=== PATIENT | female | born 1955 | race Caucasian/White ===

== ENCOUNTER 2018-08-25 21:46 | Inpatient (IN) | payer MEDICAID ==
[~2018-08-25] VITALS: Ht 162.6 cm; Wt 68.5 kg
[2018-08-25 23:29] LABS: PLATELET COUNT 223 x10^3mcL (130-400)
[2018-08-25 23:30] LABS: CARBON DIOXIDE 23.4 mmol/L (21-32); CHLORIDE SERUM 103 mmol/L (98-107); GFR1 27 mL/min; GLUCOSE SERUM 210 mg/dL (74-106); SODIUM SERUM 138 mmol/L (136-145)
[2018-08-25 23:35] LABS: ALKALINE PHOSPHATASE 94 U/L (46-116); ALT/SGPT 23 U/L (14-59); AST/SGOT 22 U/L (15-37); BILIRUBIN TOTAL 0.7 mg/dL (0.20-1.00)
[2018-08-25 23:36] LABS: ALBUMIN 2.7 g/dL (3.4-5.0); TOTAL PROTEIN, SERUM 5.9 g/dL (6.4-8.2)
[2018-08-26] VITALS (15 sets, daily range): BP systolic 56–175; BP diastolic 32–80
[2018-08-26 00:53] LABS: BAND NEUTROPHIL 14 % (0-10); METAMYELOCTE 5 % (0-2); MONOCYTE 3 % (0-7); MYELOCYTE 1 % (0-2); PLATELET MORPHOLOGY PLATELETS NORMAL; SEGMENTED NEUTROPHILS 73 % (37-75); rbc morphology (normal/abnorm) NORMAL (NORMAL)
[2018-08-26 01:42] LABS: MAGNESIUM 1.1 mg/dL (1.8-2.4); PHOSPHOROUS 3.8 mg/dL (2.5-4.9)
[2018-08-26 01:43] LABS: CHOLESTEROL/HDL RATIO 1.9
[2018-08-26 02:08] LABS: UA SPECIFIC GRAVITY >=1.030 (1.005-1.035); microscopic required? YES; urine erythrocyte 1+ (NEGATIVE)
[2018-08-26 06:29] LABS: CALCIUM 8.1 mg/dL (8.5-10.1); CARBON DIOXIDE 22.3 mmol/L (21-32); CREATININE SERUM 1.8 mg/dL (0.6-1.0); POTASSIUM SERUM 3.8 mmol/L (3.5-5.1)
[2018-08-26 06:50] LABS: PLATELET COUNT 172 x10^3mcL (130-400); RED CELL DISTRIBUTION WIDTH 14.1 % (11.5-14.5)
[2018-08-26 14:45] LABS: ATYPICAL LYMPH 1 %; BAND NEUTROPHIL 11 % (0-10); BASOPHIL 0 % (0-2); MONOCYTE 10 % (0-7); SEGMENTED NEUTROPHILS 72 % (37-75)
[2018-08-26 14:46] LABS: PLATELET MORPHOLOGY PLATELETS DECREASED; rbc morphology (normal/abnorm) ABNORMAL (NORMAL)
[2018-08-27] VITALS (19 sets, daily range): BP systolic 87–125; BP diastolic 52–94
[2018-08-27 05:30] LABS: PLATELET COUNT 122 x10^3mcL (130-400); RED CELL DISTRIBUTION WIDTH 14.9 % (11.5-14.5)
[2018-08-27 05:31] LABS: BAND NEUTROPHIL 15 % (0-10); SEGMENTED NEUTROPHILS 80 % (37-75)
[2018-08-27 05:32] LABS: PLATELET MORPHOLOGY PLATELETS DECREASED; rbc morphology (normal/abnorm) ABNORMAL (NORMAL)
[2018-08-27 05:40] LABS: CARBON DIOXIDE 18.3 mmol/L (21-32); MAGNESIUM 1.9 mg/dL (1.8-2.4); PHOSPHOROUS 5.1 mg/dL (2.5-4.9); POTASSIUM SERUM 4.9 mmol/L (3.5-5.1)
[2018-08-28] VITALS (17 sets, daily range): BP systolic 77–134; BP diastolic 47–74
[2018-08-28 05:03] LABS: CALCIUM 6.7 mg/dL (8.5-10.1); CARBON DIOXIDE 15.7 mmol/L (21-32); CREATININE SERUM 3.9 mg/dL (0.6-1.0); MAGNESIUM 1.8 mg/dL (1.8-2.4); PHOSPHOROUS 5.8 mg/dL (2.5-4.9); POTASSIUM SERUM 4.1 mmol/L (3.5-5.1)
[2018-08-28 05:07] LABS: BASOPHIL % 0.3 % (0-2); PLATELET COUNT 76 x10^3mcL (130-400); RED CELL DISTRIBUTION WIDTH 15.4 % (11.5-14.5)
[2018-08-28 20:17] LABS: CALCIUM 8.3 mg/dL (8.5-10.1); CREATININE SERUM 2.3 mg/dL (0.6-1.0)
[2018-08-28 20:24] LABS: POTASSIUM SERUM 2.6 mmol/L (3.5-5.1)
[2018-08-29] VITALS (18 sets, daily range): BP systolic 96–160; BP diastolic 51–83
[2018-08-29 04:56] LABS: BASOPHIL % 0.1 % (0-2); PLATELET COUNT 59 x10^3mcL (130-400); RED CELL DISTRIBUTION WIDTH 14.9 % (11.5-14.5)
[2018-08-29 05:00] LABS: CALCIUM 7.9 mg/dL (8.5-10.1); CARBON DIOXIDE 21.8 mmol/L (21-32); CREATININE SERUM 3.4 mg/dL (0.6-1.0); MAGNESIUM 1.6 mg/dL (1.8-2.4); PHOSPHOROUS 2.7 mg/dL (2.5-4.9); POTASSIUM SERUM 3.7 mmol/L (3.5-5.1)
[2018-08-30] VITALS (18 sets, daily range): BP systolic 107–166; BP diastolic 56–119
[2018-08-30 05:42] LABS: PLATELET COUNT 52 x10^3mcL (130-400); RED CELL DISTRIBUTION WIDTH 15.1 % (11.5-14.5)
[2018-08-30 05:49] LABS: BAND NEUTROPHIL 1 % (0-10); MONOCYTE 5 % (0-7); MYELOCYTE 1 % (0-2); SEGMENTED NEUTROPHILS 81 % (37-75)
[2018-08-30 05:50] LABS: rbc morphology (normal/abnorm) ABNORMAL (NORMAL)
[2018-08-30 05:51] LABS: PLATELET MORPHOLOGY PLATELETS DECREASED
[2018-08-30 05:52] LABS: BILIRUBIN TOTAL 2.62 mg/dL (0.20-1.00); CALCIUM 7.7 mg/dL (8.5-10.1); CARBON DIOXIDE 25.8 mmol/L (21-32); CREATININE SERUM 3.2 mg/dL (0.6-1.0); MAGNESIUM 2.3 mg/dL (1.8-2.4); PHOSPHOROUS 2.8 mg/dL (2.5-4.9); POTASSIUM SERUM 3.4 mmol/L (3.5-5.1)
[2018-08-30 05:53] LABS: ALBUMIN 1.5 g/dL (3.4-5.0); TOTAL PROTEIN, SERUM 5.3 g/dL (6.4-8.2)
[2018-08-31] VITALS (18 sets, daily range): BP systolic 112–149; BP diastolic 51–78
[2018-08-31 04:50] LABS: CALCIUM 7.5 mg/dL (8.5-10.1); CARBON DIOXIDE 26.2 mmol/L (21-32); POTASSIUM SERUM 3.9 mmol/L (3.5-5.1)
[2018-08-31 05:00] LABS: CREATININE SERUM 4.5 mg/dL (0.6-1.0)
[2018-08-31 05:04] LABS: PLATELET COUNT 61 x10^3mcL (130-400); RED CELL DISTRIBUTION WIDTH 15.6 % (11.5-14.5)
[2018-08-31 05:21] LABS: BILIRUBIN TOTAL 1.8 mg/dL (0.20-1.00); CALCIUM 7.8 mg/dL (8.5-10.1); CARBON DIOXIDE 26.3 mmol/L (21-32); MAGNESIUM 2.4 mg/dL (1.8-2.4); PHOSPHOROUS 2.6 mg/dL (2.5-4.9); POTASSIUM SERUM 3.9 mmol/L (3.5-5.1)
[2018-08-31 05:30] LABS: BAND NEUTROPHIL 1 % (0-10); MONOCYTE 5 % (0-7); MYELOCYTE 1 % (0-2); SEGMENTED NEUTROPHILS 81 % (37-75); rbc morphology (normal/abnorm) ABNORMAL (NORMAL)
[2018-08-31 05:31] LABS: PLATELET MORPHOLOGY PLATELETS DECREASED
[2018-08-31 05:36] LABS: ALBUMIN 1.5 g/dL (3.4-5.0); TOTAL PROTEIN, SERUM 5.5 g/dL (6.4-8.2)
[2018-08-31 05:37] LABS: CREATININE SERUM 4.5 mg/dL (0.6-1.0)
[2018-09-01] VITALS (21 sets, daily range): BP systolic 116–182; BP diastolic 54–91
[2018-09-01 05:21] LABS: BASOPHIL % 0.3 % (0-2)
[2018-09-01 05:22] LABS: PLATELET COUNT 75 x10^3mcL (130-400); RED CELL DISTRIBUTION WIDTH 15.7 % (11.5-14.5)
[2018-09-01 05:41] LABS: CALCIUM 7.7 mg/dL (8.5-10.1); CARBON DIOXIDE 30.7 mmol/L (21-32); CREATININE SERUM 3.9 mg/dL (0.6-1.0); MAGNESIUM 1.9 mg/dL (1.8-2.4); PHOSPHOROUS 2.4 mg/dL (2.5-4.9); POTASSIUM SERUM 3.4 mmol/L (3.5-5.1)
[2018-09-02] VITALS (16 sets, daily range): BP systolic 128–162; BP diastolic 56–102
[2018-09-02 05:19] LABS: PLATELET COUNT 97 x10^3mcL (130-400); RED CELL DISTRIBUTION WIDTH 15.4 % (11.5-14.5)
[2018-09-02 05:25] LABS: BAND NEUTROPHIL 3 % (0-10); MONOCYTE 6 % (0-7); SEGMENTED NEUTROPHILS 83 % (37-75)
[2018-09-02 05:29] LABS: PLATELET MORPHOLOGY PLATELETS DECREASED; rbc morphology (normal/abnorm) ABNORMAL (NORMAL)
[2018-09-02 05:49] LABS: CALCIUM 7.7 mg/dL (8.5-10.1); CARBON DIOXIDE 28.3 mmol/L (21-32); PHOSPHOROUS 5.3 mg/dL (2.5-4.9)
[2018-09-03] VITALS (18 sets, daily range): BP systolic 82–157; BP diastolic 29–69
[2018-09-03 05:28] LABS: BASOPHIL % 0.3 % (0-2)
[2018-09-03 05:32] LABS: CALCIUM 7.9 mg/dL (8.5-10.1); CARBON DIOXIDE 31.6 mmol/L (21-32); POTASSIUM SERUM 3.7 mmol/L (3.5-5.1)
[2018-09-03 05:33] LABS: ALBUMIN 1.6 g/dL (3.4-5.0); TOTAL PROTEIN, SERUM 6.1 g/dL (6.4-8.2)
[2018-09-03 05:34] LABS: CREATININE SERUM 5.6 mg/dL (0.6-1.0)
[2018-09-03 05:42] LABS: PLATELET COUNT 127 x10^3mcL (130-400); RED CELL DISTRIBUTION WIDTH 14.7 % (11.5-14.5)
[2018-09-04] VITALS (18 sets, daily range): BP systolic 91–135; BP diastolic 53–74
[2018-09-04 04:54] LABS: BASOPHIL % 0.2 % (0-2); PLATELET COUNT 165 x10^3mcL (130-400)
[2018-09-04 05:05] LABS: CALCIUM 8.4 mg/dL (8.5-10.1); CARBON DIOXIDE 34.2 mmol/L (21-32); CREATININE SERUM 3.8 mg/dL (0.6-1.0); MAGNESIUM 1.8 mg/dL (1.8-2.4); PHOSPHOROUS 3.6 mg/dL (2.5-4.9); POTASSIUM SERUM 3.4 mmol/L (3.5-5.1)
[2018-09-05] VITALS (18 sets, daily range): BP systolic 84–112; BP diastolic 44–69
[2018-09-05 04:47] LABS: BASOPHIL % 0.4 % (0-2); PLATELET COUNT 224 x10^3mcL (130-400)
[2018-09-05 04:54] LABS: CALCIUM 8.7 mg/dL (8.5-10.1); CARBON DIOXIDE 31.7 mmol/L (21-32); PHOSPHOROUS 4.9 mg/dL (2.5-4.9); POTASSIUM SERUM 3.6 mmol/L (3.5-5.1)
[2018-09-05 04:56] LABS: CREATININE SERUM 4.3 mg/dL (0.6-1.0)
[2018-09-05 05:03] LABS: RED CELL DISTRIBUTION WIDTH 15.7 % (11.5-14.5)
[2018-09-06] VITALS (17 sets, daily range): BP systolic 86–153; BP diastolic 49–66
[2018-09-06 05:03] LABS: BASOPHIL % 0.4 % (0-2); PLATELET COUNT 276 x10^3mcL (130-400)
[2018-09-06 05:05] LABS: RED CELL DISTRIBUTION WIDTH 15.5 % (11.5-14.5)
[2018-09-06 05:17] LABS: CALCIUM 8.3 mg/dL (8.5-10.1); CARBON DIOXIDE 32.1 mmol/L (21-32); CREATININE SERUM 3.4 mg/dL (0.6-1.0); MAGNESIUM 1.7 mg/dL (1.8-2.4); PHOSPHOROUS 4.2 mg/dL (2.5-4.9); POTASSIUM SERUM 3.3 mmol/L (3.5-5.1)
[2018-09-07] VITALS (15 sets, daily range): BP systolic 106–157; BP diastolic 42–111
[2018-09-07 04:36] LABS: BASOPHIL % 0.4 % (0-2); PLATELET COUNT 324 x10^3mcL (130-400); RED CELL DISTRIBUTION WIDTH 15.5 % (11.5-14.5)
[2018-09-07 05:23] LABS: CARBON DIOXIDE 29.2 mmol/L (21-32); MAGNESIUM 2.3 mg/dL (1.8-2.4); PHOSPHOROUS 2.9 mg/dL (2.5-4.9); POTASSIUM SERUM 4.1 mmol/L (3.5-5.1)
[2018-09-08] VITALS (16 sets, daily range): BP systolic 115–163; BP diastolic 47–99
[2018-09-08 04:35] LABS: BASOPHIL % 0.1 % (0-2); PLATELET COUNT 417 x10^3mcL (130-400); RED CELL DISTRIBUTION WIDTH 14.9 % (11.5-14.5)
[2018-09-08 04:52] LABS: CALCIUM 9.1 mg/dL (8.5-10.1); CARBON DIOXIDE 29.6 mmol/L (21-32); CREATININE SERUM 3.5 mg/dL (0.6-1.0); MAGNESIUM 2.3 mg/dL (1.8-2.4); PHOSPHOROUS 4.6 mg/dL (2.5-4.9); POTASSIUM SERUM 4.7 mmol/L (3.5-5.1)
[2018-09-09] VITALS (18 sets, daily range): BP systolic 94–1431; BP diastolic 40–70
[2018-09-09 05:25] LABS: CALCIUM 9.7 mg/dL (8.5-10.1); CARBON DIOXIDE 33.7 mmol/L (21-32); CREATININE SERUM 3.5 mg/dL (0.6-1.0); PHOSPHOROUS 4.4 mg/dL (2.5-4.9); POTASSIUM SERUM 4.6 mmol/L (3.5-5.1)
[2018-09-09 11:52] LABS: PLATELET COUNT 470 x10^3mcL (130-400); RED CELL DISTRIBUTION WIDTH 15.5 % (11.5-14.5)
[2018-09-09 12:39] LABS: ATYPICAL LYMPH 0 %; BAND NEUTROPHIL 0 % (0-10); SEGMENTED NEUTROPHILS 78 % (37-75)
[2018-09-09 12:40] LABS: MONOCYTE 3 % (0-7); PLATELET MORPHOLOGY PLATELETS INCREASED; rbc morphology (normal/abnorm) ABNORMAL (NORMAL)
[2018-09-10] VITALS (18 sets, daily range): BP systolic 94–151; BP diastolic 50–75
[2018-09-10 05:21] LABS: BASOPHIL % 0.6 % (0-2)
[2018-09-10 05:33] LABS: CALCIUM 9.3 mg/dL (8.5-10.1); CARBON DIOXIDE 33.1 mmol/L (21-32); CREATININE SERUM 3.3 mg/dL (0.6-1.0); POTASSIUM SERUM 4.3 mmol/L (3.5-5.1)
[2018-09-10 05:34] LABS: PLATELET COUNT 479 x10^3mcL (130-400)
[2018-09-11] VITALS (15 sets, daily range): BP systolic 120–141; BP diastolic 59–69
[2018-09-11 04:56] LABS: BASOPHIL % 0.4 % (0-2)
[2018-09-11 05:03] LABS: RED CELL DISTRIBUTION WIDTH 15.3 % (11.5-14.5)
[2018-09-11 05:04] LABS: PLATELET COUNT 506 x10^3mcL (130-400)
[2018-09-11 05:15] LABS: CALCIUM 8.7 mg/dL (8.5-10.1); CARBON DIOXIDE 29.7 mmol/L (21-32); CREATININE SERUM 3.2 mg/dL (0.6-1.0); POTASSIUM SERUM 3.4 mmol/L (3.5-5.1)
[2018-09-12] VITALS (17 sets, daily range): BP systolic 110–157; BP diastolic 44–87
[2018-09-12 04:38] LABS: BASOPHIL % 0.3 % (0-2); PLATELET COUNT 357 x10^3mcL (130-400)
[2018-09-12 04:44] LABS: CALCIUM 8.5 mg/dL (8.5-10.1); CARBON DIOXIDE 26.9 mmol/L (21-32); CREATININE SERUM 1.9 mg/dL (0.6-1.0); MAGNESIUM 1.6 mg/dL (1.8-2.4); PHOSPHOROUS 3.7 mg/dL (2.5-4.9); POTASSIUM SERUM 3.6 mmol/L (3.5-5.1)
[2018-09-13] VITALS (13 sets, daily range): BP systolic 116–161; BP diastolic 61–77
[2018-09-13 05:29] LABS: BASOPHIL % 0.2 % (0-2); CALCIUM 9.9 mg/dL (8.5-10.1); CARBON DIOXIDE 28.3 mmol/L (21-32); CREATININE SERUM 2.2 mg/dL (0.6-1.0); MAGNESIUM 1.9 mg/dL (1.8-2.4); PHOSPHOROUS 3.1 mg/dL (2.5-4.9); PLATELET COUNT 433 x10^3mcL (130-400); POTASSIUM SERUM 3.8 mmol/L (3.5-5.1); RED CELL DISTRIBUTION WIDTH 15.7 % (11.5-14.5)
[2018-09-14 03:31] VITALS: BP 117/58
[2018-09-14 05:02] LABS: BASOPHIL % 0.4 % (0-2)
[2018-09-14 05:23] LABS: CALCIUM 10.3 mg/dL (8.5-10.1); CARBON DIOXIDE 29.9 mmol/L (21-32); CREATININE SERUM 2.4 mg/dL (0.6-1.0); MAGNESIUM 2.2 mg/dL (1.8-2.4); PHOSPHOROUS 4.8 mg/dL (2.5-4.9); POTASSIUM SERUM 4.5 mmol/L (3.5-5.1)
[2018-09-14 07:30] VITALS: BP 122/65
[2018-09-14 07:42] VITALS: Ht 162.6 cm; Wt 68.5 kg
[2018-09-14 08:28] LABS: PLATELET COUNT 441 x10^3mcL (130-400); RED CELL DISTRIBUTION WIDTH 15.2 % (11.5-14.5)
[2018-09-14 16:59] VITALS: BP 140/58
[2018-09-14 20:55] VITALS: BP 130/57
[2018-09-15 05:08] VITALS: BP 125/50
[2018-09-15 06:23] LABS: BASOPHIL % 0.6 % (0-2)
[2018-09-15 07:07] LABS: CALCIUM 9.7 mg/dL (8.5-10.1); CARBON DIOXIDE 30.1 mmol/L (21-32); CREATININE SERUM 2.5 mg/dL (0.6-1.0); MAGNESIUM 2.2 mg/dL (1.8-2.4); PHOSPHOROUS 5.3 mg/dL (2.5-4.9); POTASSIUM SERUM 4.5 mmol/L (3.5-5.1)
[2018-09-15 07:10] LABS: PLATELET COUNT 409 x10^3mcL (130-400); RED CELL DISTRIBUTION WIDTH 15.2 % (11.5-14.5)
[2018-09-15 07:56] VITALS: BP 110/54
[2018-09-15 08:56] VITALS: BP 110/54
[2018-09-15 12:16] VITALS: BP 136/55
[2018-09-15 16:44] VITALS: BP 131/59
[2018-09-15 20:47] VITALS: BP 157/51
[2018-09-16 05:40] VITALS: BP 148/57
[2018-09-16 07:05] LABS: PLATELET COUNT 373 x10^3mcL (130-400); RED CELL DISTRIBUTION WIDTH 14.5 % (11.5-14.5)
[2018-09-16 07:11] LABS: CALCIUM 9.1 mg/dL (8.5-10.1); CARBON DIOXIDE 28.5 mmol/L (21-32); CREATININE SERUM 2.2 mg/dL (0.6-1.0); MAGNESIUM 2.2 mg/dL (1.8-2.4); PHOSPHOROUS 3.3 mg/dL (2.5-4.9); POTASSIUM SERUM 4.9 mmol/L (3.5-5.1)
[2018-09-16 09:38] VITALS: BP 115/55
[2018-09-16 11:24] LABS: BAND NEUTROPHIL 8 % (0-10); BASOPHIL 0 % (0-2); METAMYELOCTE 1 % (0-2); MONOCYTE 7 % (0-7); MYELOCYTE 2 % (0-2); PLATELET MORPHOLOGY PLATELETS INCREASED; SEGMENTED NEUTROPHILS 59 % (37-75)
[2018-09-16 11:25] LABS: rbc morphology (normal/abnorm) ABNORMAL (NORMAL)
[2018-09-16 13:59] VITALS: BP 133/50
[2018-09-16 17:42] VITALS: BP 138/60
[2018-09-16 21:37] VITALS: BP 113/47
[2018-09-17 05:25] VITALS: BP 154/58
[2018-09-17 05:28] VITALS: BP 95/46
[2018-09-17 07:05] LABS: PLATELET COUNT 334 x10^3mcL (130-400)
[2018-09-17 07:11] LABS: CALCIUM 9.5 mg/dL (8.5-10.1); CARBON DIOXIDE 33.1 mmol/L (21-32); CREATININE SERUM 1.9 mg/dL (0.6-1.0); POTASSIUM SERUM 4.2 mmol/L (3.5-5.1)
[2018-09-17 08:16] LABS: RED CELL DISTRIBUTION WIDTH 14.8 % (11.5-14.5)
[2018-09-17 09:37] VITALS: BP 129/68
[2018-09-17 12:51] VITALS: BP 136/52
[2018-09-17 13:27] LABS: ATYPICAL LYMPH 1 %; BAND NEUTROPHIL 0 % (0-10); BASOPHIL 0 % (0-2); MONOCYTE 12 % (0-7); SEGMENTED NEUTROPHILS 70 % (37-75)
[2018-09-17 13:28] LABS: rbc morphology (normal/abnorm) ABNORMAL (NORMAL)
[2018-09-17 13:29] LABS: PLATELET MORPHOLOGY PLT CLUMPS SEEN
[2018-09-17 17:26] VITALS: BP 152/56
[2018-09-17 21:21] VITALS: BP 111/48
[2018-09-18 05:30] VITALS: BP 123/51
[2018-09-18 06:18] LABS: BASOPHIL % 0.5 % (0-2); PLATELET COUNT 326 x10^3mcL (130-400)
[2018-09-18 06:56] LABS: CARBON DIOXIDE 31.6 mmol/L (21-32); CREATININE SERUM 1.7 mg/dL (0.6-1.0); MAGNESIUM 1.9 mg/dL (1.8-2.4); POTASSIUM SERUM 4.7 mmol/L (3.5-5.1)
[2018-09-18 07:30] LABS: RED CELL DISTRIBUTION WIDTH 15.1 % (11.5-14.5)
[2018-09-18 09:09] VITALS: BP 111/51
[2018-09-18 12:24] VITALS: BP 107/44
[2018-09-18 16:50] VITALS: BP 131/56
[2018-09-18 20:35] VITALS: BP 160/55
[2018-09-19] VITALS (7 sets, daily range): BP systolic 128–155; BP diastolic 36–60
[2018-09-19 06:09] LABS: PLATELET COUNT 333 x10^3mcL (130-400)
[2018-09-19 06:24] LABS: CALCIUM 10.9 mg/dL (8.5-10.1); CARBON DIOXIDE 30.9 mmol/L (21-32); CREATININE SERUM 1.9 mg/dL (0.6-1.0); MAGNESIUM 1.9 mg/dL (1.8-2.4); PHOSPHOROUS 2.8 mg/dL (2.5-4.9)
[2018-09-19 06:46] LABS: RED CELL DISTRIBUTION WIDTH 15.2 % (11.5-14.5)
[2018-09-19 07:17] LABS: POTASSIUM SERUM 5.6 mmol/L (3.5-5.1)
[2018-09-19 12:36] LABS: BAND NEUTROPHIL 6 % (0-10); BASOPHIL 0 % (0-2); MONOCYTE 6 % (0-7); SEGMENTED NEUTROPHILS 58 % (37-75)
[2018-09-19 12:37] LABS: PLATELET MORPHOLOGY GIANT PLATELET SEEN; rbc morphology (normal/abnorm) ABNORMAL (NORMAL)
[2018-09-20 05:30] VITALS: BP 127/44
[2018-09-20 06:17] LABS: CALCIUM 9.3 mg/dL (8.5-10.1); CARBON DIOXIDE 27.6 mmol/L (21-32); CREATININE SERUM 1.3 mg/dL (0.6-1.0); POTASSIUM SERUM 3.9 mmol/L (3.5-5.1)
[2018-09-20 07:37] LABS: PLATELET COUNT 242 x10^3mcL (130-400)
[2018-09-20 07:51] LABS: RED CELL DISTRIBUTION WIDTH 15.7 % (11.5-14.5)
[2018-09-20 08:00] VITALS: BP 156/56
[2018-09-20 13:52] LABS: ATYPICAL LYMPH 6 %; BAND NEUTROPHIL 1 % (0-10); BASOPHIL 0 % (0-2); MONOCYTE 4 % (0-7); SEGMENTED NEUTROPHILS 79 % (37-75)
[2018-09-20 13:53] LABS: PLATELET MORPHOLOGY PLATELETS INCREASED; rbc morphology (normal/abnorm) ABNORMAL (NORMAL)
[2018-09-20 14:08] VITALS: BP 148/48
[2018-09-20 18:06] VITALS: BP 142/53
[2018-09-20 21:05] VITALS: BP 150/56
[2018-09-21 00:54] LABS: UA SPECIFIC GRAVITY <=1.005 (1.005-1.035); microscopic required? YES; urine erythrocyte TRACE (NEGATIVE)
[2018-09-21 06:15] VITALS: BP 133/55
[2018-09-21 07:16] LABS: BASOPHIL % 0.5 % (0-2); PLATELET COUNT 249 x10^3mcL (130-400)
[2018-09-21 07:29] LABS: RED CELL DISTRIBUTION WIDTH 15.9 % (11.5-14.5)
[2018-09-21 07:47] LABS: CALCIUM 10.3 mg/dL (8.5-10.1); CREATININE SERUM 1.5 mg/dL (0.6-1.0); MAGNESIUM 1.7 mg/dL (1.8-2.4); POTASSIUM SERUM 4.1 mmol/L (3.5-5.1)
[2018-09-21 09:15] VITALS: BP 177/61
[2018-09-21 10:00] VITALS: BP 124/49
[2018-09-21 17:25] VITALS: BP 121/50
[2018-09-21 19:50] VITALS: BP 120/37
[2018-09-21 21:23] VITALS: BP 120/37
[2018-09-22] VITALS (10 sets, daily range): BP systolic 80–172; BP diastolic 47–62
[2018-09-22 07:12] LABS: CALCIUM 10.4 mg/dL (8.5-10.1); CARBON DIOXIDE 25.9 mmol/L (21-32); CREATININE SERUM 1.4 mg/dL (0.6-1.0); POTASSIUM SERUM 4.1 mmol/L (3.5-5.1)
[2018-09-22 07:19] LABS: BASOPHIL % 0.5 % (0-2); PLATELET COUNT 268 x10^3mcL (130-400)
[2018-09-23 06:19] VITALS: BP 116/73
[2018-09-23 07:25] VITALS: BP 118/43
[2018-09-23 07:28] LABS: BASOPHIL % 0.6 % (0-2); PLATELET COUNT 265 x10^3mcL (130-400)
[2018-09-23 07:39] LABS: RED CELL DISTRIBUTION WIDTH 15.4 % (11.5-14.5)
[2018-09-23 07:44] LABS: CALCIUM 10.5 mg/dL (8.5-10.1); CARBON DIOXIDE 25.9 mmol/L (21-32); CREATININE SERUM 1.3 mg/dL (0.6-1.0); POTASSIUM SERUM 4.1 mmol/L (3.5-5.1)
[2018-09-23 17:26] VITALS: BP 134/50
[2018-09-23 21:36] VITALS: BP 119/41
[2018-09-24 03:23] LABS: microscopic required? YES; urine erythrocyte NEGATIVE (NEGATIVE)
[2018-09-24 04:54] VITALS: BP 145/48
[2018-09-24 07:04] LABS: CREATININE SERUM 1.3 mg/dL (0.6-1.0); POTASSIUM SERUM 4.6 mmol/L (3.5-5.1)
[2018-09-24 08:30] LABS: BASOPHIL % 0.5 % (0-2); PLATELET COUNT 293 x10^3mcL (130-400)
[2018-09-24 08:36] LABS: RED CELL DISTRIBUTION WIDTH 15.9 % (11.5-14.5)
[2018-09-24 09:34] VITALS: BP 140/49
[2018-09-24 17:12] VITALS: BP 147/44
[2018-09-24 20:11] VITALS: BP 98/42
[2018-09-25 00:46] VITALS: BP 126/58
[2018-09-25 06:15] VITALS: BP 119/47
[2018-09-25 06:29] LABS: BASOPHIL % 0.4 % (0-2); PLATELET COUNT 320 x10^3mcL (130-400)
[2018-09-25 06:39] LABS: CALCIUM 9.4 mg/dL (8.5-10.1); CARBON DIOXIDE 25.2 mmol/L (21-32); CREATININE SERUM 1.2 mg/dL (0.6-1.0); POTASSIUM SERUM 4.2 mmol/L (3.5-5.1)
[2018-09-25 07:23] LABS: RED CELL DISTRIBUTION WIDTH 15.8 % (11.5-14.5)
[2018-09-25 09:47] VITALS: BP 143/56
[2018-09-25 17:44] VITALS: BP 136/48
[2018-09-25 19:25] VITALS: BP 136/48
[2018-09-25 20:33] VITALS: BP 124/55
[2018-09-26 06:19] VITALS: BP 130/54
[2018-09-26 07:33] LABS: BASOPHIL % 0.5 % (0-2); PLATELET COUNT 355 x10^3mcL (130-400)
[2018-09-26 07:41] LABS: CALCIUM 9.6 mg/dL (8.5-10.1); CARBON DIOXIDE 22.9 mmol/L (21-32); CREATININE SERUM 1.1 mg/dL (0.6-1.0); PHOSPHOROUS 4.1 mg/dL (2.5-4.9); POTASSIUM SERUM 4.4 mmol/L (3.5-5.1)
[2018-09-26 07:50] LABS: RED CELL DISTRIBUTION WIDTH 15.9 % (11.5-14.5)
[2018-09-26 09:26] VITALS: BP 125/40
[2018-09-26 14:26] VITALS: BP 125/40
[2018-09-26] MEDS ORDERED: DEXPF IV (14:35)
[2018-09-26] MEDS ORDERED: CEFEPIME1 G1 IV (14:35)
[2018-09-26] MEDS ORDERED: HUMULIN R100 U/1 M1 SC (14:35)
[2018-09-26] MEDS ORDERED: LANTI SQ (14:35)
[2018-09-26] MEDS ORDERED: TYL650L GT (14:35)
[2018-09-26] MEDS ORDERED: HUMULIN N100 U/1 ML SC (14:35)
[2018-09-26] MEDS ORDERED: IPRATROPIUM BROM3 M2 HHN (14:35)
[2018-09-26] MEDS ORDERED: APR20I IV (14:35)
[2018-09-26] MEDS ORDERED: DUL10S RC (14:35)
[2018-09-26] MEDS ORDERED: BG FS (14:35)
[2018-09-26] MEDS ORDERED: ACETYLCYSTEINE30 ML HHN (14:35)
[2018-09-26] MEDS ORDERED: PEP20 PEG (14:35)
[2018-09-26] MEDS ORDERED: MYCP TOP (14:35)
== END 2018-09-26 18:00 | DRG 5 ==
LOC: ED 21:46 → IC 08-26 01:03 → DU 08-26 01:03 → IC 08-26 10:33 → DU 09-14 11:59 → MU 09-20 11:23
PROVIDERS: Family Medicine; Internal Medicine; Internal Medicine Infectious Disease; Internal Medicine Nephrology; ADMIT General Practice
PROC: 05HM33Z Insertion of Infusion Device into Right Internal Jugular Vein, Percutaneous Approach (ICD-10-PCS; principal; 2018-08-26)
PROC: B543ZZA Ultrasonography of Right Jugular Veins, Guidance (ICD-10-PCS; 2018-08-26)
PROC: 5A1955Z Respiratory Ventilation, Greater than 96 Consecutive Hours (ICD-10-PCS; 2018-08-26)
PROC: 0BH17EZ Insertion of Endotracheal Airway into Trachea, Via Natural or Artificial Opening (ICD-10-PCS; 2018-08-26)
PROC: 05HN33Z Insertion of Infusion Device into Left Internal Jugular Vein, Percutaneous Approach (ICD-10-PCS; 2018-08-28)
PROC: B544ZZA Ultrasonography of Left Jugular Veins, Guidance (ICD-10-PCS; 2018-08-28)
PROC: 0B110F4 Bypass Trachea to Cutaneous with Tracheostomy Device, Open Approach (ICD-10-PCS; 2018-09-10)
PROC: 0DH63UZ Insertion of Feeding Device into Stomach, Percutaneous Approach (ICD-10-PCS; 2018-09-13)
PROC: 02PYX3Z Removal of Infusion Device from Great Vessel, External Approach (ICD-10-PCS; 2018-09-23)
PROC: 02PYX3Z Removal of Infusion Device from Great Vessel, External Approach (ICD-10-PCS; 2018-09-23)
DX: A41.51 Sepsis due to Escherichia coli [E. coli] (principal); N17.0 Acute kidney failure with tubular necrosis; E43 Unspecified severe protein-calorie malnutrition; J18.9 Pneumonia, unspecified organism; E87.2 Acidosis; J96.01 Acute respiratory failure with hypoxia; E86.0 Dehydration; N39.0 Urinary tract infection, site not specified; E11.65 Type 2 diabetes mellitus with hyperglycemia; R65.20 Severe sepsis without septic shock; E83.42 Hypomagnesemia; R80.9 Proteinuria, unspecified; E83.51 Hypocalcemia; E87.6 Hypokalemia; E78.5 Hyperlipidemia, unspecified; Z68.25 Body mass index [BMI] 25.0-25.9, adult; Z79.84 Long term (current) use of oral hypoglycemic drugs
CPT/HCPCS: 31500; 36556; 36600; 43235; 82962; 83880; 87046; 87046-59; 87804; 97110-GP; 97112-GP; 97116-GP; 97530-GP; A4301; A4628; C9113; J0132; J0171; J0360; J0690; J0692; J0696; J1170; J1200; J1450; J1610; J1642; J1644; J1720; J1815; J1940; J1956; J2001; J2060; J2185 ×2; J2250; J2270; J2310; J2370; J2543; J2704; J2765; J2930; J2997; J3010; J3370; J3475; J3480; J3490; J7030; J7040; J7050; J7620; P9047; Q0092